=== PATIENT | female | born 1975 | race Two or more races ===

== ENCOUNTER 2017-08-25 17:34 | Emergency (ER) | payer OTHER ==
[~2017-08-25] VITALS: Ht 157.5 cm; Wt 81.6 kg
[2017-08-25] MEDS ORDERED: BENAZEPRIL HCL40 MG ORAL (17:51)
[2017-08-25 17:56] VITALS: BP 150/96
[2017-08-25] MEDS ORDERED: Naproxen 500mg tab ORAL ONE (18:00)
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
[2017-08-25 19:50] VITALS: BP 138/82
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
[2017-08-25] MEDS ORDERED: ROBAXIN500 MG PO (20:06)
[2017-08-25] MEDS ORDERED: NORCO 5-325 TA1 EACH ORAL (20:06)
[2017-08-25] MEDS ORDERED: NAPROXEN500 M2 ORAL (20:06)
[2017-08-25 20:12] LABS: APPEARANCE,URINE CLEAR; BILIRUBIN, URINE NEGATIVE (NEGATIVE); COLOR,URINE PALE YELLOW; GLUCOSE, URINE (UA) NEGATIVE (NEGATIVE); KETONES,URINE NEGATIVE (NEGATIVE); LEUKOCYTE ESTERASE ,URINE 3+ (NEGATIVE); NITRITE,URINE NEGATIVE (NEGATIVE); PH,URINE 7 (4.5-8.0); PROTEIN,URINE 1+ (NEGATIVE); UROBILINOGEN,URINE 1 MG/DL (0.0-1.0)
[2017-08-25 20:20] VITALS: BP 138/82
--- NOTE | 2017-08-29 14:20 | Cardiology Report ---
APPROVED REPORT EKG Measurement Heart [id number] Normal sinus rhythm with sinus arrhythmia Normal ECG
== END 2017-08-25 20:20 | disposition home or self-care (01) ==
LOC: EMR 18:02
DX: S16.1XXA Strain of muscle, fascia and tendon at neck level, initial encounter (principal); S60.212A Contusion of left wrist, initial encounter; S20.219A Contusion of unspecified front wall of thorax, initial encounter; V43.52XA Car driver injured in collision with other type car in traffic accident, initial encounter; Y92.410 Unspecified street and highway as the place of occurrence of the external cause; I10 Essential (primary) hypertension; Z88.0 Allergy status to penicillin
CPT/HCPCS: 71046; 72040; 81003; 81025; 93005; 99284